=== PATIENT | male | born 1965 | race Caucasian/White ===

== ENCOUNTER 2024-01-03 18:12 | Inpatient (IN) | payer OTHER ==
--- NOTE | 2024-01-03 18:35 | ED ---
Psych HPI - General Chief Complaint: Psychiatric Symptoms Stated Complaint: Mental Health Time Seen by Provider: 01/03/24 18:16 Source: patient, EMS, RN notes reviewed Mode of arrival: EMS - History of Present Illness Initial Comments: 58-year-old male with a history of hypertension and also history of chronic alcoholism who does state he drinks up to 1/5 a day who is here by EMS today because of suicidal thoughts (wants to jump in the river )and ideation any states that he has been drinking heavily his last drink apparently was this morning. He also admits to using marijuana smoking cigarettes. He denies any other drug use. MD Complaint: suicidal ideation, feels depressed, other Review of Systems ROS Statement: Those systems with pertinent positive or pertinent negative responses have been documented in the HPI. ROS Other: All systems not noted in ROS Statement are negative. Past Medical History Past Medical History: Hypertension Additional Past Medical History / Comment(s): etoh Past Psychological History: Depression Smoking Status: Former smoker Past Alcohol Use History: Abuse, Daily, Heavy Past Drug Use History: Marijuana General Exam - General Exam Comments Initial Comments: This is a well-developed well-nourished awake alert lethargic male with the smell of alcohol conjoiners on his breath General appearance: alert, anxious, lethargic Head exam: Present: atraumatic, normocephalic, normal inspection Eye exam: Present: other (Dictated conjunctiva) Pupils: Present: normal accommodation ENT exam: Present: mucous membranes dry Neck exam: Present: normal inspection, full ROM, other (Better treatment ear bruise). Absent: tenderness, meningismus, lymphadenopathy Respiratory exam: Present: normal lung sounds bilaterally. Absent: respiratory distress, wheezes, rales, rhonchi, stridor Cardiovascular Exam: Present: regular rate, normal rhythm, normal heart sounds. Absent: systolic murmur, diastolic murmur, rubs, gallop, clicks GI/Abdominal exam: Present: soft, normal bowel sounds. Absent: distended, tenderness, guarding, rebound, rigid, bruit, pulsatile mass Rectal exam: Present: deferred exam: Present: other (Deferred) Extremities exam: Present: normal inspection, full ROM, normal capillary refill. Absent: tenderness, pedal edema, joint swelling, calf tenderness Back exam: Present: normal inspection Neurological exam: Present: alert, oriented X3, CN II-XII intact Psychiatric exam: Present: depressed, anxious, suicidal ideation Skin exam: Present: warm, dry, intact, normal color. Absent: rash Course Vital Signs 01/03/24 01/03/24 18:16 20:00 Temperature 98.8 F Pulse Rate 99 99 Respiratory 20 18 Rate Blood Pressure 135/89 109/86 O2 Sat by Pulse 100 95 Oximetry Medical Decision Making - Medical Decision Making The patient demonstrates an elevated alcohol level of 291 due to the c ircumstances of his history of going into withdrawal he will be admitted as a medical admission to this facility. I did discuss the case with Dr. Torres who is agreed to accept the patient. Was pt. sent in by a medical professional or institution (, PA, ROD FINISHER, urgent care, hospital, or alf...) When possible be specific @ -No Did you speak to anyone other than the patient for history (EMS, parent, family, police, friend...)? What history was obtained from this source @ -[facility] Did you review nursing and triage notes (agree or disagree)? Why? @ -I reviewed and agree with nursing and triage notes Were old charts reviewed (outside hosp., previous admission, EMS record, old EKG, old radiological studies, urgent care reports/EKG's, alf records)? Report findings @ -No old charts were reviewed, none available Differential Diagnosis (chest pain, altered mental status, abdominal pain women, abdominal pain men, vaginal bleeding, weakness, fever, dyspnea, syncope, headache, dizziness, GI bleed, back pain, seizure, CVA, palpatations, mental health, musculoskeletal)? @ -Not applicable EKG interpreted by me (3pts min.). @ -As above EG interpreted by me sinus tachycardia rate 100 01 35 QRS duration 86 QT/QTc 325/[address]-T wave changes seen X-rays interpreted by me (1pt min.). @ -None done CT interpreted by me (1pt min.). @ -None done U/S interpreted by me (1pt. min.). @ -None done What testing was considered but not performed or refused? (CT, X-rays, U/S, labs)? Why? @ -None What meds were considered but not given or refused? Why? @ -None Did you discuss the management of the patient with other professionals (professionals i.e. , PA, ROD FINISHER, lab, RT, psych nurse, social service manager, roll cutter, teacher, consumer loan officer, piano case maker)? Give summary @ -Dr. Torres Was smoking cessation discussed for >3mins.? @ -No Was critical care preformed (if so, how long)? @ -No Were there social determinants of health that impacted care today? How? (Homele ssness, low income, unemployed, alcoholism, drug addiction, transportation, low edu. Level, literacy, decrease access to med. care, prison, rehab)? @ -Alcoholism Was there de-escalation of care discussed even if they declined (Discuss DNR or withdrawal of care, Hospice)? DNR status @ -No What co-morbidities impacted this encounter? (DM, HTN, Smoking, COPD, CAD, Cancer, CVA, ARF, Chemo, Hep., AIDS, mental health diagnosis, sleep apnea, morbid obesity)? @ -HTN Was patient admitted / discharged? Hospital course, mention meds given and route, prescriptions, significant lab abnormalities, going to OR and other pertinent info. @ -Hospital course patient was admitted for inpatient evaluation and treatment psychiatric evaluation Undiagnosed new problem with uncertain prognosis? @ -No Drug Therapy requiring intensive monitoring for toxicity (Heparin, Nitro, Insulin, Cardizem)? @ -No Were any procedures done? @ -No Diagnosis/symptom? @ -Alcohol intoxication, alcohol abuse, depression, suicidal ideation Acute, or Chronic, or Acute on Chronic? @ -Acute Uncomplicated (without systemic symptoms) or Complicated (systemic symptoms)? @ -Complicated Side effects of treatment? @ -No Exacerbation, Progression, or Severe Exacerbation? @ -No Poses a threat to life or bodily function? How? (Chest pain, [place], [place], pneumonia, PE, COPD, DKA, ARF, appy, cholecystitis, CVA, Diverticulitis, Homicidal, Suicidal, threat to staff... and all critical care pts) @ -[facility] - Lab Data Result diagrams: 01/03/24 18:57 01/03/24 18:57 Lab Results 01/03/24 01/03/24 01/03/24 Range/Units 18:57 18:57 18:57 WBC 6.7 (3.8-10.6) k/uL RBC 4.53 (4.30-5.90) m/uL Hgb 15.6 (13.0-17.5) gm/dL Hct 44.6 (39.0-53.0) % MCV 98.5 (80.0-100.0) fL MCH 34.5 (25.0-35.0) pg MCHC 35.1 (31.0-37.0) g/dL RDW 12.8 (11.5-15.5) % Plt Count 285 (150-450) k/uL MPV 7.2 Neutrophils % 54 % Lymphocytes % 33 % Monocytes % 7 % Eosinophils % 4 % Basophils % 1 % Neutrophils # 3.6 (1.3-7.7) k/uL Lymphocytes # 2.2 (1.0-4.8) k/uL Monocytes # 0.5 (0-1.0) k/uL Eosinophils # 0.3 (0-0.7) k/uL Basophils # 0.1 (0-0.2) k/uL PT (10.0-12.5) sec INR (<1.2) Sodium 143 (137-145) mmol/L Potassium 4.7 (3.5-5.1) mmol/L Chloride 107 (98-107) mmol/L Carbon Dioxide 21 L (22-30) mmol/L Anion Gap 15 mmol/L BUN 6 L (9-20) mg/dL Creatinine 0.83 (0.66-1.25) mg/dL Est GFR (CKD-EPI)AfAm >90 (>60 ml/min/1.73 sqM) Est GFR (CKD-EPI)NonAf >90 (>60 ml/min/1.73 sqM) Glucose 120 H (74-99) mg/dL POC Glucose (mg/dL) (70-110) mg/dL POC Glu Pot Fisher ID Calcium 8.9 (8.4-10.2) mg/dL Magnesium 2.1 (1.6-2.3) mg/dL Total Bilirubin 0.3 (0.2-1.3) mg/dL AST 70 H (17-59) U/L ALT 95 H (4-49) U/L Alkaline Phosphatase 57 (38-126) U/L Ammonia 9 (<30) umol/L Creatine Kinase 386 H (55-170) U/L Troponin I (0.000-0.034) ng/mL Total Protein 7.8 (6.3-8.2) g/dL Albumin 4.7 (3.5-5.0) g/dL Urine Opiates Screen (NotDetected) Ur Oxycodone Screen (NotDetected) Urine Methadone Screen (NotDetected) Ur Barbiturates Screen (NotDetected) U Tricyclic Antidepress (NotDetected) Ur Phencyclidine Scrn (NotDetected) Ur Amphetamines Screen (NotDetected) U Methamphetamines Scrn (NotDetected) U Benzodiazepines Scrn (NotDetected) Urine Cocaine Screen (NotDetected) U Marijuana (THC) Screen (NotDetected) Serum Alcohol 291 H* mg/dL 01/03/24 01/03/24 01/03/24 Range/Units 18:57 18:57 19:00 WBC (3.8-10.6) k/uL RBC (4.30-5.90) m/uL Hgb (13.0-17.5) gm/dL Hct (39.0-53.0) % MCV (80.0-100.0) fL MCH (25.0-35.0) pg MCHC (31.0-37.0) g/dL RDW (11.5-15.5) % Plt Count (150-450) k/uL MPV Neutrophils % % Lymphocytes % % Monocytes % % Eosinophils % % Basophils % % Neutrophils # (1.3-7.7) k/uL Lymphocytes # (1.0-4.8) k/uL Monocytes # (0-1.0) k/uL Eosinophils # (0-0.7) k/uL Basophils # (0-0.2) k/uL PT 10.7 (10.0-12.5) sec INR 1.0 (<1.2) Sodium (137-145) mmol/L Potassium (3.5-5.1) mmol/L Chloride (98-107) mmol/L Carbon Dioxide (22-30) mmol/L Anion Gap mmol/L BUN (9-20) mg/dL Creatinine (0.66-1.25) mg/dL Est GFR (CKD-EPI)AfAm (>60 ml/min/1.73 sqM) Est GFR (CKD-EPI)NonAf (>60 ml/min/1.73 sqM) Glucose (74-99) mg/dL POC Glucose (mg/dL) 120 H (70-110) mg/dL POC Glu Pot Fisher ID Eva Blanco Calcium (8.4-10.2) mg/dL Magnesium (1.6-2.3) mg/dL Total Bilirubin (0.2-1.3) mg/dL AST (17-59) U/L ALT (4-49) U/L Alkaline Phosphatase (38-126) U/L Ammonia (<30) umol/L Creatine Kinase (55-170) U/L Troponin I <0.012 (0.000-0.034) ng/mL Total Protein (6.3-8.2) g/dL Albumin (3.5-5.0) g/dL Urine Opiates Screen (NotDetected) Ur Oxycodone Screen (NotDetected) Urine Methadone Screen (NotDetected) Ur Barbiturates Screen (NotDetected) U Tricyclic Antidepress (NotDetected) Ur Phencyclidine Scrn (NotDetected) Ur Amphetamines Screen (NotDetected) U Methamphetamines Scrn (NotDetected) U Benzodiazepines Scrn (NotDetected) Urine Cocaine Screen (NotDetected) U Marijuana (THC) Screen (NotDetected) Serum Alcohol mg/dL 01/03/24 Range/Units 19:04 WBC (3.8-10.6) k/uL RBC (4.30-5.90) m/uL Hgb (13.0-17.5) gm/dL Hct (39.0-53.0) % MCV (80.0-100.0) fL MCH (25.0-35.0) pg MCHC (31.0-37.0) g/dL RDW (11.5-15.5) % Plt Count (150-450) k/uL MPV Neutrophils % % Lymphocytes % % Monocytes % % Eosinophils % % Basophils % % Neutrophils # (1.3-7.7) k/uL Lymphocytes # (1.0-4.8) k/uL Monocytes # (0-1.0) k/uL Eosinophils # (0-0.7) k/uL Basophils # (0-0.2) k/uL PT (10.0-12.5) sec INR (<1.2) Sodium (137-145) mmol/L Potassium (3.5-5.1) mmol/L Chloride (98-107) mmol/L Carbon Dioxide (22-30) mmol/L Anion Gap mmol/L BUN (9-20) mg/dL Creatinine (0.66-1.25) mg/dL Est GFR (CKD-EPI)AfAm (>60 ml/min/1.73 sqM) Est GFR (CKD-EPI)NonAf (>60 ml/min/1.73 sqM) Glucose (74-99) mg/dL POC Glucose (mg/dL) (70-110) mg/dL POC Glu Pot Fisher ID Calcium (8.4-10.2) mg/dL Magnesium (1.6-2.3) mg/dL Total Bilirubin (0.2-1.3) mg/dL AST (17-59) U/L ALT (4-49) U/L Alkaline Phosphatase (38-126) U/L Ammonia (<30) umol/L Creatine Kinase (55-170) U/L Troponin I (0.000-0.034) ng/mL Total Protein (6.3-8.2) g/dL Albumin (3.5-5.0) g/dL Urine Opiates Screen Not Detected (NotDetected) Ur Oxycodone Screen Not Detected (NotDetected) Urine Methadone Screen Not Detected (NotDetected) Ur Barbiturates Screen Not Detected (NotDetected) U Tricyclic Antidepress Not Detected (NotDetected) Ur Phencyclidine Scrn Not Detected (NotDetected) Ur Amphetamines Screen Not Detected (NotDetected) U Methamphetamines Scrn Not Detected (NotDetected) U Benzodiazepines Scrn Not Detected (NotDetected) Urine Cocaine Screen Not Detected (NotDetected) U Marijuana (THC) Screen Detected H (NotDetected) Serum Alcohol mg/dL Disposition Clinical Impression: Depression, Suicidal ideation, Alcohol intoxication, Alcohol withdrawal Disposition: ADMITTED IP TO THIS [facility] Condition: Fair Referrals: None,Stated [Primary Care Provider] - 1-2 days Time of Disposition: 20:00 Decision Date: 01/03/24 Decision Time: 20:00
[2024-01-03 19:03] LABS: Glucose,Whole Blood 120 mg/dL (70-110)
[2024-01-03 19:07] LABS: Basophils # (A) 0.1 k/uL (0-0.2); Basophils % (A) 1 %; Eosinophils # (A) 0.3 k/uL (0-0.7); Eosinophils % (A) 4 %; HCT 44.6 % (39.0-53.0); HGB 15.6 gm/dL (13.0-17.5); Lymphocytes # (A) 2.2 k/uL (1.0-4.8); Lymphocytes % (A) 33 %; MCH 34.5 pg (25.0-35.0); MCHC 35.1 g/dL (31.0-37.0); MCV 98.5 fL (80.0-100.0); Mean Platelet Volume 7.2; Monocytes # (A) 0.5 k/uL (0-1.0); Monocytes % (A) 7 %; Neutrophils # (A) 3.6 k/uL (1.3-7.7); Neutrophils % (A) 54 %; Platelet Count 285 k/uL (150-450); RBC 4.53 m/uL (4.30-5.90); RDW 12.8 % (11.5-15.5); WBC 6.7 k/uL (3.8-10.6)
[2024-01-03 19:18] LABS: Prothrombin Time 10.7 sec (10.0-12.5)
[2024-01-03 19:20] LABS: ALT 95 U/L (4-49); AST 70 U/L (17-59); African American GFR (CKD) >90 (>60 ml/min/1.73 sqM); Albumin 4.7 g/dL (3.5-5.0); Alkaline Phosphatase 57 U/L (38-126); Anion Gap 15 mmol/L; Blood Urea Nitrogen 6 mg/dL (9-20); Calcium 8.9 mg/dL (8.4-10.2); Carbon Dioxide 21 mmol/L (22-30); Chloride 107 mmol/L (98-107); Creatine Kinase 386 U/L (55-170); Glucose 120 mg/dL (74-99); Magnesium 2.1 mg/dL (1.6-2.3); Non-African American GFR(CKD) >90 (>60 ml/min/1.73 sqM); Potassium 4.7 mmol/L (3.5-5.1); Sodium 143 mmol/L (137-145); Total Bilirubin 0.3 mg/dL (0.2-1.3); Total Protein 7.8 g/dL (6.3-8.2)
[2024-01-03 19:33] LABS: Amphetamine Screen,Urine Not Detected (NotDetected); Barbiturate Screen,Urine Not Detected (NotDetected); Benzodiazepines Screen,Urine Not Detected (NotDetected); Cocaine Screen,Urine Not Detected (NotDetected); Methadone Screen, Urine Not Detected (NotDetected); Opiate Screen,Urine Not Detected (NotDetected); Oxycodone Screen, Urine Not Detected (NotDetected); Phencyclidine Screen,Urine Not Detected (NotDetected); Tricyclic Antidepressant,Urine Not Detected (NotDetected); Urn Cannabinoid Scrn Detected (NotDetected)
[2024-01-03 19:34] LABS: Alcohol 291 mg/dL
[2024-01-03] MEDS ORDERED: NALOXONE 0.4 MG/ML 1 ML VIAL IV PRN (20:42)
[2024-01-03] MEDS: SODIUM CHLORIDE 0.9% 1,000 ML IV SCH (20:59)
[2024-01-03] MEDS ORDERED: THIAMINE 250 MG in SODIUM CHLORIDE 0.9% 50 ML IVPB SCH (22:00)
[2024-01-04] MEDS ORDERED: LORazepam 0.5 MG TAB PO PRN (00:14)
--- NOTE | 2024-01-04 00:17 | P.HPIM ---
History of Present Illness H&P Date: 01/03/24 Patient is a 58 old male with a PMH of EtOH abuse who presents to the emergency room for alcohol intoxication. The patient had reportedly expressed suicidal ideation to EMS staff. The patient is currently denying any suicidal or homicidal ideation. He reports drinking 12 tall boys beers daily. Does report a history of delirium tremens and alcohol withdrawal seizures and hallucinations. Reports he has been drinking for most of his life and heavily for several decades and that his last drink was earlier today. Denies chest discomfort, shortness breath, fever, chills, cough, nausea, vomiting, abdominal pain, diarrhea. EKG in emergency room revealed sinus tachycardia at [address]/T wave changes noted as read by me. Laboratory evaluation reveals WBC count 6.7, hemoglobin 15.6, platelet count 25, sodium 143, CO2 21, BUN 6, creatinine 0.83, glucose 120, AST 70, ALT 95, creatinine kinase 386, troponin less than 0.012 with serum alcohol level 291. ED documentation reviewed and case discussed with ED provider. Review of systems: Pertinent positives and negatives as discussed in HPI, a complete review of systems was performed and all other systems are negative. Physical examination: Vital signs reviewed General: non toxic, no distress, appears at stated age, overweight Derm: no unusual rashes/lesions, warm Head: atraumatic, normocephalic, symmetric Eyes: EOMI, no lid lag, anicteric sclera, pupils equal round reactive to light ENT: Nose and ears atraumatic Neck: No cervical lymphadenopathy, trachea midline, supple Mouth: no lip lesion, mucus membranes moist Cardiovascular: S1S2 reg, no murmur, positive dorsalis pedis pulse bilateral, no edema Lungs: CTA bilateral, no rhonchi, no rales, no accessory muscle use Abdominal: soft, nontender to palpation, no guarding Ext: muscle strength 5 out of 5 in all 4 extremities grossly, no gross muscle atrophy, no contractures, Neuro: CN II-XI grossly intact, no gross focal neuro deficits Psych: Alert, oriented, appropriate affect Assessment: Alcohol intoxication with alcohol dependence Transaminitis, likely due to ongoing alcohol abuse Suicidal ideation Marijuana abuse Imaging: EKG in emergency room revealed sinus tachycardia at [address]/T wave changes noted as read by me. Data Review: Laboratory evaluation reveals WBC count 6.7, hemoglobin 15.6, platelet count 25, sodium 143, CO2 21, BUN 6, creatinine 0.83, glucose 120, AST 70, ALT 95, creatinine kinase 386, troponin less than 0.012 with serum alcohol level 291. Plan: CIWA protocol with Ativan as needed Continue with IV fluids normal saline 100 cc/h Continue thiamine and multivitamin Psychiatry consulted Seizure precautions DVT prophylaxis: Lovenox subcu The patient is admitted with an anticipated greaterthan 2 midnight stay for ev aluation of EtOH CODE STATUS: Full Code Discussed with: Patient Anticipated discharge place: Home Past Medical History Past Medical History: Hypertension Additional Past Medical History / Comment(s): etoh Past Psychological History: Depression Smoking Status: Former smoker Past Alcohol Use History: Abuse, Daily, Heavy Past Drug Use History: Marijuana - Past Family History Father Sister(s) Family Medical History: Hypertension, Liver Disease Medications and Allergies Allergies Allergy/AdvReac Type Severity Reaction Status Date / Time No Known Allergies Allergy Verified 01/03/24 20:54 Physical Exam Vitals: Vital Signs Temp Pulse Resp BP Pulse Ox 01/03/24 23:00 116 H 18 105/72 97 01/03/24 20:00 99 18 109/86 95 01/03/24 18:16 98.8 F 99 20 135/89 100 Intake and Output 01/03/24 01/03/24 01/04/24 14:59 22:59 06:59 Other: Weight 83.915 kg Results CBC & Chem 7: 01/03/24 18:57 01/03/24 18:57 Labs: Abnormal Lab Results - Last 24 Hours (Table) 01/03/24 01/03/24 01/03/24 Range/Units 18:57 19:00 19:04 Carbon Dioxide 21 L (22-30) mmol/L BUN 6 L (9-20) mg/dL Glucose 120 H (74-99) mg/dL POC Glucose (mg/dL) 120 H (70-110) mg/dL AST 70 H (17-59) U/L ALT 95 H (4-49) U/L Creatine Kinase 386 H (55-170) U/L U Marijuana (THC) Screen Detected H (NotDetected) Serum Alcohol 291 H* mg/dL
[2024-01-04] MEDS: LORazepam 1 MG TAB PO PRN ×2 (01:43→07:46)
[2024-01-04] MEDS: SODIUM CHLORIDE 0.9% 1,000 ML IV SCH (02:44)
[2024-01-04 07:17] LABS: ALT 71 U/L (4-49); AST 61 U/L (17-59); African American GFR (CKD) >90 (>60 ml/min/1.73 sqM); Albumin/Globulin Ratio 1.5; Alkaline Phosphatase 52 U/L (38-126); Anion Gap 9 mmol/L; Blood Urea Nitrogen 12 mg/dL (9-20); Calcium 8.4 mg/dL (8.4-10.2); Carbon Dioxide 21 mmol/L (22-30); Chloride 106 mmol/L (98-107); Globulin 2.7 g/dL; Glucose 100 mg/dL (74-99); Non-African American GFR(CKD) >90 (>60 ml/min/1.73 sqM); Potassium 4.5 mmol/L (3.5-5.1); Sodium 136 mmol/L (137-145); Total Bilirubin 0.5 mg/dL (0.2-1.3); Total Protein 6.7 g/dL (6.3-8.2)
[2024-01-04] MEDS: MULTIVITAMINS, THERA 1 EACH TAB PO SCH (08:13)
[2024-01-04] MEDS: ENOXAPARIN 40 MG/0.4 ML SYRINGE SQ SCH (08:13)
[2024-01-04] MEDS: THIAMINE 100 MG TAB PO SCH (08:13)
[2024-01-04] MEDS: NICOTINE 21MG/24HR PATCH TRANSDERM SCH (08:14)
[2024-01-04] MEDS: FOLIC ACID 1 MG TAB PO SCH (08:22)
--- NOTE | 2024-01-04 13:55 | P.PN ---
Subjective Progress Note Date: 01/04/24 Hospital course: Patient is a 58-year-old male presented to the hospital on 01/03/2024 with alcohol intoxication and reports of suicidal ideations. Upon arrival to our facility, patient underwent evaluation in the emergency department. Vital signs upon arrival show blood pressure 135/89, heart rate 99, respiratory rate 20, temp 98.8 F, and SpO2 of 100% on room air. EKG was completed showing sinus tachycardia at 100 bpm with no noted T wave or ST abnormality showing no signs of acute ischemia upon personal review and interpretation. Labs completed and reviewed. Serum alcohol level was elevated at 291. Urine drug screen positive for marijuana. CBC unremarkable. Coagulation profile normal findings. BMP showing high anion gap metabolic acidosis with chloride of 107, bicarb 21, and anion gap of 15. Blood glucose was 120. Liver profile showing elevated AST of 70 and ALT of 95. Creatinine kinase was slightly elevated at 386. Physical exam: Patient was seen and fully evaluated at bedside. He reports that he did tell EMS that he wanted to end his life but states "I am the last person that would end my life". Patient reports feeling mildly anxious and tremulous otherwise denies having any complaints or needs at this time. Vital signs reviewed and stable. General: Nontoxic, no distress and appears stated age. Derm: Skin warm and dry, normal coloration for ethnicity. Head: Atraumatic, normocephalic and symmetric. Eyes: EOM's intact, no lid lag, and anicteric sclera Mouth: no lip lesions, mucus membranes moist Cardiovascular: regular rate and rhythm with normal S1S2, no murmur, positive posterior tibial pulses bilaterally, and cap refill < 2 seconds. Lungs: Respirations even, regular, and unlabored on room air. Lungs CTA bilaterally, no rhonchi, no rales, no wheezing, and no accessory muscle usage. Abdominal: soft, nontender to palpation, no guarding, no appreciable organomegaly Ext: ROM intact. No gross muscle atrophy, no edema, no contractures Neuro: Speech clear, face symmetrical and CN II-XII grossly intact with no noted focal neuro deficits. Mild tremors noted in bilateral hands. Psych: Alert and oriented to person, place, time, and situation. Appropriate and pleasant affect. Assessment and Plan of Care: Alcohol withdrawal Alcohol intoxication upon arrival Transaminitis secondary to EtOH abuse Depresson with Suicidal ideation High anion gap metabolic acidosis Cannabis use disorder -Continue monitoring of CIWA scores and patient to be medicated with Ativan 0.5 mg every 4 hours as needed for CIWA score of 4-5, Ativan 1 mg every 4 hours for CIWA score of 6-7, Ativan 2 mg every 3 hours CIWA score of 8-9, and Ativan 2 mg every 2 hours forr CIWA score of 10 or greater. -Continuous IV hydration. -Thiamine 100 mg daily, and Multivitamin daily, and Folate 1 mg daily -Seizure, fall, aspiration, and elopement precautions in place. -Urine drug screen -Continued close monitoring of electrolytes and replace as needed. -Telemetry monitoring. -Maintain suicide precautions -Consult to psychiatry Data and imaging reviewed: Vital signs reviewed. Blood pressure 143/88, heart rate 97, respiratory rate 18, and SpO2 of 95% on room air Morning labs reviewed. High anion gap metabolic acidosis improving with chloride of 106, bicarb 21, and anion gap of 9. Blood glucose was 100. Liver enzymes show AST of 61 and ALT of 71 with alk phos of 52. CODE STATUS: Full code DVT prophylaxis: Lovenox Anticipated discharge date: Pending clinical course Anticipated discharge place: Pending clinical course, home versus inpatient mental health facility Patient was seen independently by Nurse Pracitioner. This document was prepared using mi[employer] dictation software. Please allow for errors in ladies attendant, while rare they do occur. Devyn Wahl NP rendered care for this patient independently, reviewed the findings and plan as documented in the note above. I did not physically speak with or examine the patient on this date. Objective - Vital Signs Vital signs: Vital Signs Temp 98.8 F 01/03/24 18:16 Pulse 97 01/04/24 07:44 Resp 18 01/04/24 07:44 BP 143/88 01/04/24 07:44 Pulse Ox 95 01/04/24 07:44 FiO2 Intake & Output 01/03/24 01/04/24 01/04/24 18:59 06:59 18:59 Weight 83.915 kg - Labs CBC & Chem 7: 01/03/24 18:57 01/04/24 06:24 Labs: Abnormal Lab Results - Last 24 Hours (Table) 01/03/24 01/03/24 01/03/24 Range/Units 18:57 19:00 19:04 Sodium (137-145) mmol/L Carbon Dioxide 21 L (22-30) mmol/L BUN 6 L (9-20) mg/dL Glucose 120 H (74-99) mg/dL POC Glucose (mg/dL) 120 H (70-110) mg/dL AST 70 H (17-59) U/L ALT 95 H (4-49) U/L Creatine Kinase 386 H (55-170) U/L U Marijuana (THC) Screen Detected H (NotDetected) Serum Alcohol 291 H* mg/dL 01/04/24 Range/Units 06:24 Sodium 136 L (137-145) mmol/L Carbon Dioxide 21 L (22-30) mmol/L BUN (9-20) mg/dL Glucose 100 H (74-99) mg/dL POC Glucose (mg/dL) (70-110) mg/dL AST 61 H (17-59) U/L ALT 71 H (4-49) U/L Creatine Kinase (55-170) U/L U Marijuana (THC) Screen (NotDetected) Serum Alcohol mg/dL
[2024-01-04] MEDS ORDERED: hydrOXYzine pamoate 25 MG CAP PO PRN (14:30)
--- NOTE | 2024-01-04 14:36 | P.CN ---
Psychiatric Consult - . Consult date: 01/04/24 Consult:: 01/04/24 13:47 IDENTIFYING DATA: This patient is a 58-year-old male, currently , has no kids, he is unemployed, lives with his father REASON FOR REFERRAL: Psychiatry was consulted for depression suicidal ideations and alcohol abuse HISTORY OF PRESENT ILLNESS: The patient presented to the hospital initially on 01/02. Patient has a chronic history of alcohol use disorder. Patient states that he has been drinking about 1/5 of liquor a day. Patient was brought in by EMS, apparently was intoxicated with blood alcohol level 291, was having suicidal thoughts cording to ER report. Patient's LFTs were mildly elevated, UDS positive for THC. Patient was seen today in the ER and agreeable to speak to music writer. States that he got into an argument with his father and was "drunk" and states that he drank more than he usually does at that time, states that he drank about 4 cans of beer. States that he apparently told his father that he was suicidal, his father called EMS to bring him in the hospital. Patient was s omewhat vague about it, rationalizing. He did state that he is not suicidal at this time or has been before. He was fairly future oriented states that he wants to live for his mandaeism and also his family. Denies any access to guns or weapons. States that he did go to intermediate in the past for a DUI 2 times. States that he does have some anxiety, denies any depression, denies any changes in sleep and appetite. At this time patient denies any suicidal or homical ideations, intent or plan. Patient denies any auditory, visual hallucinations and denies any paranoia or delusions. Patients admits to using alcohol as noted above, denies any other recreational drug use. States that he has mild tremors in his hands from the alcohol withdrawal, he was fairly pleasant during the interview. PAST PSYCHIATRIC HISTORY: Patient has a a history of alcohol use disorder and anxiety. Claims that he has been on several different antidepressants in the past however is not interested in going on any at this time. Currently takes Klonopin as needed for anxiety prescribed by his PCP. Patient denies any previous psychiatric hospitalizations. Patient denies any psychiatric outpatient follow-up. Patient denies any history of suicide attempts in the past. PAST MEDICAL HISTORY:Past Medical History: Hypertension Additional Past Medical History / Comment(s): etoh Past Psychological History: Depression Smoking Status: Former smoker Past Alcohol Use History: Abuse, Daily, Heavy Past Drug Use History: Marijuana ALLERGIES: as per EMR. CHEMICAL DEPENDENCY HISTORY: as per HPI. FAMILY PSYCHIATRIC/SUBSTANCE USE HISTORY: Denies SOCIAL HISTORY: Patient was born and raised in [facility]. 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 States that he went to intermediate twice in the past once in 2017 and once in 2020 for DUI. States that he has no kids, he is unemployed he lives with his father, he is .. MENTAL STATUS EXAM: General Appearance: Patient appears to be mildly overweight, stated age is alert, pleasant, and cooperative. Patient appears to have fair hygiene and grooming wearing hospital gown with fair eye contact. Behavior: Patient is calmly lying in bed without any agitated behavior. Somewhat vague at times about his drinking Speech: Patient's speech is fluent and nonpressured. Mood/Affect: Patient reports their mood is "just a bit of anxiety but otherwise happy", affect is congruent Suicidality/Homicidality: Patient denies having any suicidal or homicidal ideation intent or plan. Perceptions: Patient denies any visual hallucinations and denies any auditory hallucinations Though content/process: There is no evidence of any delusional thought content and thought process is linear and goal-directed. Rationalizing at times and minimizing his alcohol use Memory and concentration: AOX3, grossly intact for the purposes of this session. Can spell "WORLD" backwards Judgment and insight: Superficial IMPRESSIONS: Alcohol use disorder, currently in withdrawal Anxiety disorder unspecified Mood disorder unspecified PLAN: -At this time patient DOES NOT meet criteria for inpatient psychiatric admission. -Would recommend the following medication changes/additions: Torpedo Worker spoke with patient about the dangers of being on Klonopin a benzodiazepine while drinking and the risk of overdose and severe intoxication, patient verbally understood and agreed. He was not interested in any SSRI/SNRI at this time to help with his anxiety and mood. Will start Vistaril as needed for anxiety. He is not interested in anticraving medications at this time for alcohol use. -CIWA protocol with PRN Ativan for alcohol withdrawal. Continue to monitor vital signs. -painting worker to provide patient with outpatient mental health/psychiatry resources for appropriate follow up upon discharge -Torpedo Worker spoke with patient about substance abuse and the harmful effects on medical and mental health, patient verbally understood and agreed. -painting worker to provide patient substance use treatment resources including AA/NA meetings in the community. -painting worker to provide patient with access line number to call for inpatient substance rehab -Communicated plan to patient's nurse -Psychiatry will sign off at this time -Please contact with any questions. 01/04/24 14:30
[2024-01-04] MEDS: ONDANSETRON 4 MG/2 ML VIAL IVP PRN (16:09)
[2024-01-05] MEDS: LORazepam 1 MG TAB PO PRN ×2 (02:53→18:39)
[2024-01-05 09:28] LABS: HCT 37.6 % (39.6-50.0); HGB 12.9 g/dL (13.0-17.0); MCH 34.1 pg (27.0-32.0); MCHC 34.3 g/dL (32.0-37.0); MCV 99.5 FL (80.0-97.0); Mean Platelet Volume 10.5 FL (9.5-12.2); NRBC Per 100 WBC 0 X 10*3/uL (0.00-0.01); Platelet Count 168 X 10*3/uL (140-440); RBC 3.78 X 10*6/uL (4.40-5.60); RDW 12.5 % (11.5-14.5); WBC 5.13 X 10*3/uL (4.50-10.00)
[2024-01-05 09:44] LABS: ALT 65 U/L (10-49); AST 43 U/L (14-35); Albumin 3.9 g/dL (3.8-4.9); Albumin/Globulin Ratio 1.77 Ratio (1.60-3.17); Alkaline Phosphatase 58 U/L (41-126); BUN/Creat Ratio 13.64 Ratio (12.00-20.00); Calcium 7.8 mg/dL (8.7-10.3); Carbon Dioxide 22.2 mmol/L (21.6-31.8); Chloride 104 mmol/L (96-109); Globulin 2.2 g/dL (1.6-3.3); Glucose 91 mg/dL (70-110); Sodium 138 mmol/L (135-145); Total Bilirubin 0.5 mg/dL (0.3-1.2); Total Protein 6.1 g/dL (6.2-8.2)
--- NOTE | 2024-01-05 16:28 | P.PN ---
Subjective Progress Note Date: 01/05/24 Hospital course: Patient is a 58-year-old male presented to the hospital on 01/03/2024 with alcohol intoxication and reports of suicidal ideations. Upon arrival to our facility, patient underwent evaluation in the emergency department. Vital signs upon arrival show blood pressure 135/89, heart rate 99, respiratory rate 20, temp 98.8 F, and SpO2 of 100% on room air. EKG was completed showing sinus tachycardia at 100 bpm with no noted T wave or ST abnormality showing no signs of acute ischemia upon personal review and interpretation. Labs completed and reviewed. Serum alcohol level was elevated at 291. Urine drug screen positive for marijuana. CBC unremarkable. Coagulation profile normal findings. BMP showing high anion gap metabolic acidosis with chloride of 107, bicarb 21, and anion gap of 15. Blood glucose was 120. Liver profile showing elevated AST of 70 and ALT of 95. Creatinine kinase was slightly elevated at 386. Patient was admitted under our services for medical detox and consult was placed to psychiatry for evaluation. Physical exam: Patient was seen and fully evaluated at bedside. He was preparing to eat lunch, reports continued tremors and feeling slightly anxious. Patient was evaluated by psychiatrist clearing patient stating patient does not meet inpatient criteria. Patient currently denies suicidal ideations, does report experiencing symptoms of withdrawal including GI upset with nausea and diarrhea as well as moderate tremors. He denies any other complaints at this time. Vital signs reviewed and stable. General: Nontoxic, no distress and appears stated age. Derm: Skin warm and dry, normal coloration for ethnicity. Head: Atraumatic, normocephalic and symmetric. Eyes: EOM's intact, no lid lag, and anicteric sclera Mouth: no lip lesions, mucus membranes moist Cardiovascular: regular rate and rhythm with normal S1S2, no murmur, positive posterior tibial pulses bilaterally, and cap refill < 2 seconds. Lungs: Respirations even, regular, and unlabored on room air. Lungs CTA bilaterally, no rhonchi, no rales, no wheezing, and no accessory muscle usage. Abdominal: soft, nontender to palpation, no guarding, no appreciable organomegaly Ext: ROM intact. No gross muscle atrophy, no edema, no contractures Neuro: Speech clear, face symmetrical and CN II-XII grossly intact with no noted focal neuro deficits. Mild tremors noted in bilateral hands. Psych: Alert and oriented to person, place, time, and situation. Appropriate and pleasant affect. Assessment and Plan of Care: Alcohol withdrawal Alcohol intoxication upon arrival Transaminitis secondary to EtOH abuse Depresson with Suicidal ideation High anion gap metabolic acidosis Cannabis use disorder -Continue monitoring of CIWA scores and patient to be medicated with Ativan 0.5 mg every 4 hours as needed for CIWA score of 4-5, Ativan 1 mg every 4 hours for CIWA score of 6-7, Ativan 2 mg every 3 hours CIWA score of 8-9, and Ativan 2 mg every 2 hours forr CIWA score of 10 or greater. -Continuous IV hydration. -Thiamine 100 mg daily, and Multivitamin daily, and Folate 1 mg daily -Seizure, fall, aspiration, and elopement precautions in place. -Urine drug screen -Continued close monitoring of electrolytes and replace as needed. -Telemetry monitoring. -Psychiatry evaluated, patient currently denies having any thoughts of suicide. Psychiatry clearing patient from their perspective stating patient does not meet inpatient criteria. Data and imaging reviewed: Vital signs reviewed. Blood pressure 120/72, heart rate 80, respiratory rate 18, temp 98.7 F, and SpO2 of 97% on room air. Morning labs reviewed. CBC showing macrocytic anemia with hemoglobin of 12.9 and MCV of 99.5. BMP was unremarkable. Magnesium 2.0. Liver profile showing elevated AST of 43 and ALT of 65. CODE STATUS: Full code DVT prophylaxis: Lovenox Anticipated discharge date: Pending clinical course Anticipated discharge place: Pending clinical course, home versus inpatient mental health facility Patient was seen independently by Nurse Pracitioner. This document was prepared using [employer] dictation software. Please allow for errors in chuck splitter, while rare they do occur. I reviewed the documentation as provided by the KENDY above, who is the original author of this note. I agree with the documented assessment and plan, with the following changes: none Objective - Vital Signs Vital signs: Vital Signs Temp 98.2 F 01/05/24 07:00 Pulse 74 01/05/24 07:00 Resp 14 01/05/24 07:00 BP 117/76 01/05/24 07:00 Pulse Ox 95 01/05/24 07:00 FiO2 Intake & Output 01/04/24 01/05/24 01/05/24 18:59 06:59 18:59 Weight 83.915 kg Other: Voiding Method Toilet # Voids 3 - Labs CBC & Chem 7: 01/05/24 02:49 01/07/24 07:46
--- NOTE | 2024-01-06 12:50 | P.PN ---
Subjective Progress Note Date: 01/06/24 Principal diagnosis: etoh abuse patient still having signs of alcohol withdrawal, he is still shaky and anxious, denies having symptoms of pain, nausea or vomiting. Objective - Vital Signs Vital signs: Vital Signs Temp 98.6 F 01/06/24 12:07 Pulse 77 01/06/24 12:07 Resp 16 01/06/24 12:07 BP 130/82 01/06/24 12:07 Pulse Ox 96 01/06/24 12:07 FiO2 Intake & Output 01/05/24 01/06/24 01/06/24 18:59 06:59 18:59 Intake Total 1000 Balance 1000 Intake: Intake, IV Titration 1000 Amount Sodium Chloride 0.9% 1, 1000 000 ml @ 100 mls/hr IV . Q10H [facility] Rx#:[id number] Other: Voiding Method Toilet Toilet Toilet # Voids 1 - Exam Constitutional: No acute distress, conversant, pleasant Eyes:Anicteric sclerae, moist conjunctiva, no lid-lag, PERRLA, ENMT: Oropharynx clear, no erythema, exudates Neck: Supple, FROM, no masses, or JVD, No carotid bruits, No thyromegaly Lungs: Clear to auscultation, Clear to percussion, Normal respiratory effort, no accessory muscle use Cardiovascular: Heart regular in rate and rhythm, No murmurs, gallops, or rubs, No peripheral edema Abdominal: Soft, Nontender, no guarding, rebound or rigidity, Normoactive bowel sounds, No hepatomegaly, No splenomegaly, No palpable mass Skin: Normal temperature, tone, texture, turgor, no induration, No subcutaneous nodules, No rash, lesions, No ulcers Extremities: No digital cyanosis, No clubbing, Pedal pulses intact and symmetrical, Radial pulses intact and symmetrical, No calf tenderness Psychiatric: Alert and oriented to person, place and time, appropriate affect, intact judgement Neuro: bilateral tremors. Muscles Strength 5/5 in all 4 extremities, Sensation to light touch grossly present throughout, Cranial nerves II-XII grossly intact, no focal sensory deficits - Labs CBC & Chem 7: 01/05/24 02:49 01/05/24 02:49 Assessment and Plan Plan: Alcohol withdrawal Alcohol intoxication upon arrival Transaminitis secondary to EtOH abuse Depresson with Suicidal ideation High anion gap metabolic acidosis Cannabis use disorder -still with active withdrawal on CIWA. Continue ativan iv prn. -Thiamine 100 mg daily, and Multivitamin daily, and Folate 1 mg daily -Declined antidepressants, states he tried them in the past without benefits -Seizure, fall, aspiration, and elopement precautions in place.. -Psychiatry evaluated, patient currently denies having any thoughts of suicide. Psychiatry clearing patient from their perspective stating patient does not meet inpatient criteria. Data and imaging reviewed: CODE STATUS: Full code DVT prophylaxis: Lovenox Anticipated discharge date: Pending clinical course Anticipated discharge place: home
[2024-01-06] MEDS: clonazePAM 1 MG TAB PO SCH (14:54)
[2024-01-07 08:29] VITALS: RESP 16
[2024-01-07 11:15] LABS: ALT 68 U/L (10-49); AST 43 U/L (14-35); Albumin/Globulin Ratio 1.67 Ratio (1.60-3.17); Alkaline Phosphatase 61 U/L (41-126); BUN/Creat Ratio 11.82 Ratio (12.00-20.00); Carbon Dioxide 23.4 mmol/L (21.6-31.8); Chloride 112 mmol/L (96-109); Globulin 2.4 g/dL (1.6-3.3); Glucose 104 mg/dL (70-110); Magnesium 2.1 mg/dL (1.5-2.4); Potassium 4.4 mmol/L (3.5-5.5); Sodium 146 mmol/L (135-145); Total Bilirubin 0.4 mg/dL (0.3-1.2); Total Protein 6.4 g/dL (6.2-8.2)
[2024-01-07 12:24] VITALS: BP 143/89; PULSE 72; TEMP 98.4
--- NOTE | 2024-01-07 12:31 | P.DS ---
Providers Date of admission: 01/03/24 20:43 Expected date of discharge: 01/07/24 Attending physician: Erin Torres MD Consults: 01/03/24 20:42 Consult Physician Routine Consulting Provider: Fermín Schuler Consult Reason/Comments: Depression, suicidal ideation, alcohol abuse Do you want consulting provider notified?: Yes, Notify in am Primary care physician: Stated None Hospital Course: 58 old male with a PMH of EtOH abuse who presents to the emergency room for alcohol intoxication. The patient had reportedly expressed suicidal ideation to EMS staff. The patient is currently denying any suicidal or homicidal ideation. He reports drinking 12 tall boys beers daily. Does report a history of delirium tremens and alcohol withdrawal seizures and hallucinations. Reports he has been drinking for most of his life and heavily for several decades and that his last drink was earlier today. Denies chest discomfort, shortness breath, fever, chills, cough, nausea, vomiting, abdominal pain, diarrhea. EKG in emergency room revealed sinus tachycardia at [address]/T wave changes noted as read by me. Laboratory evaluation reveals WBC count 6.7, hemoglobin 15.6, platelet count 25, sodium 143, CO2 21, BUN 6, creatinine 0.83, glucose 120, AST 70, ALT 95, creatinine kinase 386, troponin less than 0.012 with serum alcohol level 291. He was admitted initially for alcohol intoxication. Was hydrated then went through etoh withdrawal. He was initiated on ciwa protocol. mild transaminitis remains stable throughout his hospitalization. This is secondary to alcohol-in duced liver injury. Patient was seen by psychiatry as well because of history of anxiety/depression, worsening with Suicidal ideation. psychiatrist did not think he meets criteria for inpatient psychiatric admission. Patient also declined treatment with antidepressants and antianxiety medications stating that he already tried all of them. He told me that he was Having more stress than normal lately because of arguments with his dad with whom he lives. he is currently over that. He is feeling much better. He is has not been requiring Ativan last 24 hours. He was counselled to quit etoh abuse. He was discharged home in stable condition. Patient was seen and examined on the day of discharge 01/06 Time for discharge 36 min Patient Condition at Discharge: Fair Plan - Discharge Summary New Discharge Prescriptions: Continue clonazePAM [KlonoPIN] 1 mg PO BID Mirtazapine [Remeron] 15 mg PO HS lisinopriL [Zestril] 10 mg PO DAILY Montelukast [Singulair] 10 mg PO HS Albuterol Inhaler [Ventolin Hfa Inhaler] 2 puff INHALATION RT-QID PRN PRN Reason: Shortness Of Breath Fluticasone Propion/Salmeterol [Advair Hfa 45-21 Mcg Inhaler] 2 puff INHALATION RT-BID Discharge Medication List Albuterol Inhaler [Ventolin Hfa Inhaler] 2 puff INHALATION RT-QID PRN 01/04/24 [History] Fluticasone Propion/Salmeterol [Advair Hfa 45-21 Mcg Inhaler] 2 puff INHALATION RT-BID 01/04/24 [History] Mirtazapine [Remeron] 15 mg PO HS 01/04/24 [History] Montelukast [Singulair] 10 mg PO HS 01/04/24 [History] clonazePAM [KlonoPIN] 1 mg PO BID 01/04/24 [History] lisinopriL [Zestril] 10 mg PO DAILY 01/04/24 [History] Follow up Appointment(s)/Referral(s): None,Stated [Primary Care Provider] - 1-2 days Activity/Diet/Wound Care/Special Instructions: PCP: WALTER FOX Discharge/Stand Alone Forms: Who Do I Call?, Community Resources, Outpatient Counseling
== END 2024-01-07 14:21 | disposition home or self-care (01) | DRG 775 ==
LOC: EC 18:12 → 5NMEDONC 20:43
PROVIDERS: ADMIT Internal Medicine; ATTEND Internal Medicine
DX: F10.229 Alcohol dependence with intoxication, unspecified (principal); F10.239 Alcohol dependence with withdrawal, unspecified; R45.851 Suicidal ideations; E87.20 Acidosis, unspecified; K70.9 Alcoholic liver disease, unspecified; F12.10 Cannabis abuse, uncomplicated; F32.A Depression, unspecified; I10 Essential (primary) hypertension; F41.9 Anxiety disorder, unspecified; Y90.8 Blood alcohol level of 240 mg/100 ml or more; Z79.51 Long term (current) use of inhaled steroids; Z79.899 Other long term (current) drug therapy; Z56.0 Unemployment, unspecified; Z87.891 Personal history of nicotine dependence; Z82.49 Family history of ischemic heart disease and other diseases of the circulatory system
CPT/HCPCS: 36415; 80053; 80306; 80320; 82075; 82140; 82550; 83735; 84484; 85025; 85027; 85610; 93005; 96361; 96372; 96374; 99285